=== PATIENT | male | born 1965 | race Hispanic/Latino ===

== ENCOUNTER 2017-12-31 16:24 | Emergency (ER) | payer OTHER ==
[2017-12-31 16:39] VITALS: RESP 18; TEMP 98.3; O2SAT 98
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
[2017-12-31 18:37] VITALS: BP 128/79; PULSE 72
--- NOTE | 2018-01-01 10:35 | RAD ---
Date of service: 12/31/2017 PROCEDURE: Cervical Spine Radiographs. HISTORY: Pain. No history of recent/ related trauma provided COMPARISON: None. FINDINGS: BONES: Alignment maintained. No fracture. Dens Intact. DISC SPACES: Normal. SOFT TISSUES: Normal. No prevertebral soft tissue swelling. OTHER FINDINGS: None. IMPRESSION: Normal cervical spine radiographs Concordant results with the preliminary interpretation rendered by the emergency department physician procedure.
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
== END 2017-12-31 18:36 | disposition home or self-care (01) ==
LOC: ED 16:24
DX: M54.2 Cervicalgia (principal); M54.5 Low back pain; V53.5XXA Driver of pick-up truck or van injured in collision with car, pick-up truck or van in traffic accident, initial encounter; Y92.410 Unspecified street and highway as the place of occurrence of the external cause